=== PATIENT | female | born 1995 | race Caucasian/White ===

== ENCOUNTER 2016-11-06 10:48 | Emergency (ER) | payer SELFPAY ==
--- NOTE | 2016-11-06 11:14 | ER Document Report ---
HPI - HPI Patient complains to provider of: tampon stuck Pain Level: 4 Context: 20 yo female c/o tampon stuck in vagina x 8h. mild vaginal pain. no abdominal pain, no vomiting, no dysuria Associated Symptoms: None Exacerbated by: Deep breathing Relieved by: Denies Similar symptoms previously: No Recently seen / treated by doctor: No - ROS Systems Reviewed and Negative: Yes All other systems reviewed and negative - DERM Skin Color: Normal Past Medical History - General Information source: Patient - Social History Smoking Status: Never Smoker Frequency of alcohol use: None Drug Abuse: None Lives with: Family Family History: Reviewed & Not Pertinent Patient has suicidal ideation: No Patient has homicidal ideation: No - Medical History Medical History: Negative Renal/ Medical History: Denies: Hx Peritoneal Dialysis Vertical Provider Document - CONSTITUTIONAL Agree With Documented VS: Yes - INFECTION CONTROL TRAVEL OUTSIDE OF THE [place] IN LAST 30 DAYS: No - HEENT HEENT: Atraumatic, PERRLA - NECK Neck: Normal Inspection, Supple - RESPIRATORY Respiratory: Breath Sounds Normal, No Respiratory Distress O2 Sat by Pulse Oximetry: 99 - CARDIOVASCULAR Cardiovascular: Regular Rate, Regular Rhythm - GI/ABDOMEN Gastrointestinal: Abdomen Soft, Abdomen Non-Tender - REPRODUCTIVE Female Genitalia: Normal Inspection. negative: CMT, Adnexal Pain-Right Notes: moderate amount bright red blood in vaginal vault. no tampon visualized - BACK Back: Normal Inspection - NEURO Level of Consciousness: Awake, Alert, Appropriate - DERM Integumentary: Warm, Dry, No Rash Course - Vital Signs Vital signs: Temp Pulse Resp BP Pulse Ox 98.1 F 83 14 135/80 H 99 11/06/16 10:52 11/06/16 10:52 11/06/16 10:52 11/06/16 10:52 11/06/16 10:52 Discharge - Discharge Clinical Impression: Vaginal bleeding Condition: Stable Instructions: Vaginal Bleeding ([facility]) Additional Instructions: No tampon visualized in the vaginal vault Please make an apoointment with your MEMBERSHIP SECRETARY for further evaluation
[2016-11-06 12:41] VITALS: BP 111/78
== END 2016-11-06 12:41 | disposition home or self-care (01) ==
LOC: ER 10:48
DX: N93.8 Other specified abnormal uterine and vaginal bleeding (principal); R10.2 Pelvic and perineal pain
CPT/HCPCS: 99283

== ENCOUNTER 2017-09-24 08:59 | Emergency (ER) | payer SELFPAY ==
--- NOTE | 2017-09-24 09:21 | ER Document Report ---
ED Medical Screen (RME) - General Chief Complaint: Rib Pain Stated Complaint: RIB PAIN Time Seen by Provider: 09/24/17 09:17 Mode of Arrival: Ambulatory Information source: Patient TRAVEL OUTSIDE OF THE [place] IN LAST 30 DAYS: No - HPI Patient complains to provider of: right rib/abdo pain Notes: 09/24/17 09:19 Patient is here with complaints of right lower rib/upper abdominal pain for the last 2 days. She has had a mild URI for the last few days. States that the pain is worse when she takes a deep breath or coughs or moves in a certain way. She denies fever. She denies nausea, vomiting, diarrhea. She denies dysuria or hematuria. No significant shortness of breath. Physical exam: No distress, nontoxic appearing. Tenderness to palpation of the right upper quadrant. No CVA tenderness. Plan: CBC, CMP, lipase, urine, urine , ultrasound of the right upper quadrant, chest x-ray. An initial examination was made on the patient as part of the triage process, and it was determined a more comprehensive evaluation was necessary. Initial labs were ordered and patient was transferred to another provider in the ED who assumed care and finished evaluation and plan. - Related Data Allergies/Adverse Reactions: No Known Allergies Allergy (Verified 09/24/17 09:01) Past Medical History Renal/ Medical History: Denies: Hx Peritoneal Dialysis
--- NOTE | 2017-09-24 09:25 | ER Document Report ---
ED General - General Chief Complaint: Rib Pain Stated Complaint: RIB PAIN Time Seen by Provider: 09/24/17 09:17 Mode of Arrival: Ambulatory Notes: The patient is a 21-year-old female, no past medical history, presents with 2 days of right lower rib pain and right upper quadrant and epigastric abdominal pain. She says the pain is pleuritic in nature and worse when she takes deep breath. She smokes cigarettes and has an IUD. She says the pain is constantly worsening over these past 2 days. She denies syncope, numbness, tingling, back pain, nausea, vomiting, diarrhea, constipation, urinary symptoms or headache. TRAVEL OUTSIDE OF THE [place] IN LAST 30 DAYS: No - Related Data Allergies/Adverse Reactions: No Known Allergies Allergy (Verified 09/24/17 09:01) Past Medical History - General Information source: Patient - Social History Smoking Status: Current Every Day Smoker Frequency of alcohol use: Social Drug Abuse: None Family History: Reviewed & Not Pertinent Patient has suicidal ideation: No Patient has homicidal ideation: No Renal/ Medical History: Denies: Hx Peritoneal Dialysis Review of Systems - Review of Systems Notes: REVIEW OF SYSTEMS: CONSTITUTIONAL: -fevers, -chills EENT: -eye pain, -difficulty swallowing, -nasal congestion CARDIOVASCULAR: +chest pain, -syncope. RESPIRATORY: -cough, +SOB GASTROINTESTINAL: +RUQ abdominal pain, -nausea, -vomiting, -diarrhea GENITOURINARY: -dysuria, -hematuria MUSCULOSKELETAL: -back pain, -neck pain SKIN: -rash or skin lesions. HEMATOLOGIC: -easy bruising or bleeding. LYMPHATIC: -swollen, enlarged glands. NEUROLOGICAL: -altered mental status or loss of consciousness, -headache, - neurologic symptoms PSYCHIATRIC: -anxiety, -depression. ALL OTHER SYSTEMS REVIEWED AND NEGATIVE. Physical Exam - Vital signs Vitals: Temp Pulse Resp BP Pulse Ox 98.6 F 88 16 124/69 98 09/24/17 09:08 09/24/17 09:08 09/24/17 09:08 09/24/17 09:08 09/24/17 09:08 - Notes Notes: PHYSICAL EXAMINATION: GENERAL: Well-appearing, well-nourished and in no acute distress. HEAD: Atraumatic, normocephalic. EYES: Pupils equal round and reactive to light, extraocular movements intact, sclera anicteric, conjunctiva are normal. ENT: nares patent, oropharynx clear without exudates. Moist mucous membranes. NECK: Normal range of motion, supple without lymphadenopathy LUNGS: Breath sounds clear to auscultation bilaterally and equal. No wheezes rales or rhonchi. HEART: Regular rate and rhythm without murmurs ABDOMEN: Soft, mild RUQ and epigastric tenderness, normoactive bowel sounds. No guarding, no rebound. No masses appreciated. EXTREMITIES: Normal range of motion, no pitting or edema. No cyanosis. NEUROLOGICAL: Cranial nerves grossly intact. Normal speech, normal gait. Normal sensory and motor exams. PSYCH: Normal mood, normal affect. SKIN: Warm, Dry, normal turgor, no rashes or lesions noted. Course - Re-evaluation Re-evalutation: Patient with right-sided pleuritic chest pain and right upper quadrant abdominal pain for the past 2 days that is worsening. Patient is low risk for PE, but unable to PERC out due to her smoking and control use. Will send d-dimer. D-dimer is positive, but CTA does not show any acute abnormalities. Right upper quadrant ultrasound shows a mildly enlarged gallbladder wall, which is most likely normal. Her LFTs and bilirubin are normal and exam is now normal, so cholecystitis is very unlikely at this time. Patient appears well and instructed her to to follow-up with her primary care physician for further evaluation and treatment. - Vital Signs Vital signs: Temp Pulse Resp BP Pulse Ox 97.8 F 67 18 114/81 98 09/24/17 11:37 09/24/17 11:37 09/24/17 11:37 09/24/17 11:37 09/24/17 11:37 - Laboratory Result Diagrams: 09/24/17 09:33 09/24/17 09:33 Laboratory results interpreted by me: 09/24/17 09/24/17 09/24/17 09:33 09:33 09:33 Monocytes % 13.4 H D-Dimer 0.75 H Sodium 147.4 H Calcium 10.3 H Urine Blood 09/24/17 09:44 Monocytes % D-Dimer Sodium Calcium Urine Blood MODERATE H - Diagnostic Test Radiology reviewed: Image reviewed, Reports reviewed Radiology results interpreted by me: CXR: NAD RUQ US: Wall thickness upper limits of normal, probably a normal variant. No evidence of gallstones. CTA Chest: NAD, No PE - EKG Interpretation by Me EKG shows normal: Sinus rhythm, [place], Intervals, QRS Complexes, ST-T Waves Rate: Normal Discharge - Discharge Clinical Impression: Epigastric abdominal pain Chest pain Qualifiers: Chest pain type: unspecified Qualified Code(s): R07.9 - Chest pain, unspecified Condition: Stable Disposition: HOME, SELF-CARE Additional Instructions: CHEST PAIN OF UNCLEAR CAUSE: The exact cause of your chest pain isn't clear. Fortunately, there is no evidence of a dangerous medical condition. Further testing may be required to find the source of the pain. Most often, we find that this pain is coming from the chest wall -- the muscles or rib joints in the chest. But chest pain can come from the lung and lung lining, the esophagus, the heart valves or heart lining, and even the stomach or gallbladder. Rest. Eat lightly until the pain is gone. We may prescribe medicine for pain and inflammation. You should call the physician immediately if the pain radiates to the shoulder, jaw or arms; if you start to run a fever or develop a cough; or if you develop shortness of breath, or other new or alarming symptoms. NORMAL EXAM AND WORKUP: At this time, your examination and workup show no significant abnormality. No significant abnormal physical findings were noted. All laboratory, EKG, and imaging (x-ray, CT scans, ultrasound) studies that were ordered show no significant abnormality. Although your examination and all studies that were ordered showed no significant abnormal finding, there are no examinations and no studies that are 100% accurate. There is always the possibility that some abnormality could exist and not be detected with physical examination or within the limits and capabilities of laboratory and other studies. You should return or follow up as you were instructed on your visit today for further evaluation if your symptoms do not resolve. CHEST WALL PAIN: Your chest pain may be coming from the chest wall. This is often caused by straining the muscles or joints in the chest during physical activity, direct trauma, coughing, or vigorous vomiting. Persons with arthritis are especially prone to this type of pain, due to inflammation of the cartilage joints near the breast bone. Occasionally, no cause can be found. Rest from strenuous physical activity. This kind of chest pain is usually made worse by movement of the chest. Depending on the symptoms, we may prescribe medicine for pain, muscle relaxation, and antiinflammatory effects. If the pain is new, and seems to be due to muscle strain, cold packs can help. Otherwise, apply gentle warmth to the painful area for 15 minutes every hour or two. You should call contact the doctor immediately if things change. Further evaluation is needed if you develop a fever or cough, if the nature of the pain changes, or if you become short of breath. ACID REFLUX DISEASE (GERD): Gastro-Esophageal Reflux Disease (GERD) is caused by stomach acid refluxing back up into the esophagus. The valve at the end of the esophagus may be weak. This is common in persons with a hiatal hernia. GERD symptoms can include indigestion, chest pain, heartburn, or food "sticking." Certain foods, alcohol, and aspirin can make GERD worse. Treatment depends on the severity. Usually, antacids or acid-suppressing medicines are used. When the esophagus is acutely inflamed, the physician will often prescribe membrane-protective drugs such as Carafate. Some patients benefit from medication such as Reglan that tightens the valve at the top of the stomach. Avoid those foods that bring on your symptoms. For many people, these foods are coffee, chocolate, onions, garlic, and carbonated drinks. Don't use alcohol, aspirin, caffeine, or tobacco. Don't eat late at night -- within 4 hours of bedtime. Don't over-eat. If necessary, elevate the head of your bed about 4 inches so that stomach acid will not roll up into your esophagus. Call the doctor if you develop severe chest pain, inability to swallow fluids, fever, or worsening symptoms. FOLLOW-UP CARE: If you have been referred to a physician for follow-up care, call the physician s office for an appointment as you were instructed or within the next two days. If you experience worsening or a significant change in your symptoms, notify the physician immediately or return to the Emergency Department at any time for re-evaluation. SHORTNESS OF BREATH OR DYSPNEA: You were evaluated for shortness of breath, or dyspnea. Dyspnea has many causes, and some are more serious than others. Sometimes it's impossible to diagnose the cause of dyspnea with the tests that are available on an emergency basis. Based on our evaluation today, you do not need hospitalization now. We found no evidence of pneumonia, collapsed lung, blood clots in the lung, tumors , or heart failure. Causes of non-specific dyspnea can include asthma or bronchospasm, hyperventilation, emotional distress, heart disease, emphysema, fibrosis of the lung, and stiffness of the chest wall. In healthy individuals with a single episode, it's sometimes reasonable to do nothing but wait to see if the problem occurs again. Additional tests used to evaluate dyspnea can include cardiac stress testing, echocardiography, pulmonary function testing, CAT scan of the chest, bronchoscopy or pulmonary biopsy. Return if shortness of breath persists or worsens, or if you develop chest pain, fever, cough, confusion, or fainting. NORMAL EXAM AND WORKUP: At this time, your examination and workup show no significant abnormality. No significant abnormal physical findings were noted. All laboratory, EKG, and imaging (x-ray, CT scans, ultrasound) studies that were ordered show no significant abnormality. Although your examination and all studies that were ordered showed no significant abnormal finding, there are no examinations and no studies that are 100% accurate. There is always the possibility that some abnormality could exist and not be detected with physical examination or within the limits and capabilities of laboratory and other studies. You should return or follow up as you were instructed on your visit today for further evaluation if your symptoms do not resolve. FOLLOW-UP CARE: If you have been referred to a physician for follow-up care, call the physician s office for an appointment as you were instructed or within the next two days. If you experience worsening or a significant change in your symptoms, notify the physician immediately or return to the Emergency Department at any time for re-evaluation. Referrals: BLOSSOM CONTE MD [ACTIVE STAFF] - Follow up as needed
--- NOTE | 2017-09-24 09:39 | RADIOLOGY REPORT (SQ) ---
EXAM DESCRIPTION: CHEST 2 VIEWS COMPLETED DATE/TIME: 09/24/2017 9:27 am REASON FOR STUDY: pain COMPARISON: None. EXAM PARAMETERS: NUMBER OF VIEWS: two views TECHNIQUE: Digital Frontal and Lateral radiographic views of the chest acquired. RADIATION DOSE: NA LIMITATIONS: none FINDINGS: LUNGS AND PLEURA: No opacities, masses or pneumothorax. No pleural effusion. MEDIASTINUM AND HILAR STRUCTURES: No masses or contour abnormalities. HEART AND VASCULAR STRUCTURES: Heart normal size. No evidence for failure. BONES: No acute findings. HARDWARE: None in the chest. OTHER: No other significant finding. IMPRESSION: NO ACUTE RADIOGRAPHIC FINDING IN THE CHEST. TECHNICAL DOCUMENTATION: JOB ID: [id number] [employer]- All Rights Reserved Reading location - IP/workstation name: [email or web address]
[2017-09-24 09:48] LABS: ABSOLUTE BASOPHILS # (AUTO) 0.1 10^3/uL (0.0-0.2); ABSOLUTE EOSINOPHILS # (AUTO) 0.2 10^3/uL (0.0-0.6); ABSOLUTE LYMPHOCYTES (AUTO) 2.2 10^3/uL (0.5-4.7); ABSOLUTE MONOCYTES (AUTO) 1.3 10^3/uL (0.1-1.4); ABSOLUTE NEUT (AUTO) 6.1 10^3/uL (1.7-8.2); BASOPHILS % (AUTO) 0.9 % (0-2); EOSINOPHILS % (AUTO) 2.4 % (0-6); HEMATOCRIT 41.1 % (36.0-47.0); LYMPHOCYTES % (AUTO) 22.1 % (13-45); MEAN CORPUSCULAR HEMOGLOBIN 28.2 pg (27.0-33.4); MEAN CORPUSCULAR VOLUME 83 fl (80-97); MONOCYTES % (AUTO) 13.4 % (3-13); PLATELET COUNT 334 10^3/uL (150-450); RED BLOOD COUNT 4.96 10^6/uL (3.72-5.28); RED CELL DISTRIBUTION WIDTH 13.5 % (11.5-14.0); SEGMENTED NEUTROPHILS % (AUTO) 61.2 % (42-78); TOTAL CELLS COUNTED % (AUTO) 100 %
[2017-09-24 10:00] LABS: ALANINE AMINOTRANSFERASE 28 U/L (9-52); ALBUMIN 4.5 g/dL (3.5-5.0); ALKALINE PHOSPHATASE 77 U/L (38-126); ANION GAP 12 (5-19); ASPARTATE AMINO TRANSFERASE 24 U/L (14-36); BILIRUBIN,DIRECT 0.2 mg/dL (0.0-0.4); BILIRUBIN,TOTAL 0.2 mg/dL (0.2-1.3); BLOOD UREA NITROGEN 13 mg/dL (7-20); CALCIUM 10.3 mg/dL (8.4-10.2); CARBON DIOXIDE 29 mmol/L (22-30); CHLORIDE 106 mmol/L (98-107); GLUCOSE 82 mg/dL (75-110); POTASSIUM 4.7 mmol/L (3.6-5.0); SODIUM 147.4 mmol/L (137-145); TOTAL PROTEIN 7.4 g/dL (6.3-8.2)
[2017-09-24 10:02] LABS: APPEARANCE,URINE CLEAR; BILIRUBIN,URINE NEGATIVE (NEGATIVE); COLOR,URINE YELLOW; GLUCOSE, URINE NEGATIVE (NEGATIVE); KETONES,URINE NEGATIVE (NEGATIVE); LEUKOCYTE ESTERASE,URINE NEGATIVE (NEGATIVE); NITRITE,URINE NEGATIVE (NEGATIVE); PROTEIN,URINE NEGATIVE (NEGATIVE); URINE SPECIFIC GRAVITY 1.015; UROBILINOGEN,URINE NEGATIVE mg/dL (<2.0)
--- NOTE | 2017-09-24 10:42 | RADIOLOGY REPORT (SQ) ---
EXAM DESCRIPTION: U/S ABDOMEN LIMITED W/O DOP COMPLETED DATE/TIME: 09/24/2017 10:22 am REASON FOR STUDY: ruq pain COMPARISON: None. TECHNIQUE: Dynamic and static grayscale images acquired of the abdomen and recorded on PACS. Additio nal selected color Doppler and spectral images recorded. LIMITATIONS: None. FINDINGS: PANCREAS: No masses. Visualized pancreatic duct normal caliber. LIVER: No masses. Echotexture normal. LIVER VASCULATURE: Normal directional flow of the main portal vein and hepatic veins. GALLBLADDER: No stones. Wall thickness 3.5 mm. No pericholecystic fluid. ULTRASOUND-DETECTED ESTES'S SIGN: Negative. INTRAHEPATIC DUCTS AND COMMON DUCT: CBD and intrahepatic ducts normal caliber. No filling defects. INFERIOR VENA CAVA: Normal flow. AORTA: No aneurysm. RIGHT KIDNEY: Normal size. Normal echogenicity. No solid or suspicious masses. No hydronephrosis. No calcifications. PERITONEAL AND RIGHT PLEURAL SPACE: No ascites or effusions. OTHER: No other significant findings. IMPRESSION: Wall thickness upper limits of normal, probably a normal variant. No evidence of gallst ones. TECHNICAL DOCUMENTATION: JOB ID: [id number] [employer]- All Rights Reserved Reading location - IP/workstation name: [email or web address]
--- NOTE | 2017-09-24 11:20 | RADIOLOGY REPORT (SQ) ---
EXAM DESCRIPTION: CTA CHEST COMPLETED DATE/TIME: 09/24/2017 10:53 am REASON FOR STUDY: pleuritic chest pain, +d-dimer, smoking, con COMPARISON: Chest x-ray dated 09/24/2017 TECHNIQUE: CT scan of the chest performed using helical scanning technique with dynamic intravenous contrast injection. Images reviewed with lung, soft tissue and bone windows. Reconstructed coronal and sagittal MPR images reviewed. Additional 3 dimensional post-processing performed to develop Maximal Intensity Projection images (SC P). All images stored on PACS. All CT scanners at this facility use dose modulation, iterative reconstruction, and/or weight based d osing when appropriate to reduce radiation dose to as low as reasonably achievable (ALARA). [facility]: Dose Right [facility]: CareDose [facility]: Dose Right [facility]: Teradose 4D [facility]: Innofidei CONTRAST TYPE AND DOSE: contrast/concentration: Isovue 370.00 mg/ml; Total Contrast Delivered: 73.0 ml; Total Saline Delivered: 90.1 ml Contrast bolus optimized for the pulmonary arteries. Not diagnostic for the aorta. RENAL FUNCTION: None required. The patient is less than 50 years old. RADIATION DOSE: CT Rad equipment meets quality standard of care and radiation dose reduction techniq ues were employed. CTDIvol: 13.2 - 15.6 mGy. DLP: 561 mGy-cm. . LIMITATIONS: None. FINDINGS: LUNGS AND PLEURA: No masses, infiltrates, pneumothorax. No pleural effusions, calcificati ons. AORTA AND GREAT VESSELS: No aneurysm. Contrast bolus not optimized for the aorta. HEART: No pericardial effusion. No significant coronary artery calcifications. PULMONARY ARTERIES: No emboli visualized in the main pulmonary arteries or the segmental branches. HILAR AND MEDIASTINAL STRUCTURES: No identified masses or abnormal nodes. HARDWARE: None in the chest. UPPER ABDOMEN: No significant findings. Limited exam. THYROID AND OTHER SOFT TISSUES: No masses. No adenopathy. BONES: No acute or significant finding. 3D MIPS: Confirm above findings. OTHER: No other significant finding. IMPRESSION: NORMAL CTA OF THE CHEST. NO PULMONARY EMBOLI. COMMENT: Quality ID # [id number]: Final reports with documentation of one or more dose reduction techniques (e.g., Automated exposure control, adjustment of the mA and/or kV according to patient size, use of iterative reconstruction technique) TECHNICAL DOCUMENTATION: JOB ID: [id number]- All Rights Reserved Reading location - IP/workstation name: [email or web address]
[2017-09-24 11:39] VITALS: BP 114/81
--- NOTE | 2017-09-24 13:59 | EKG REPORT ---
SEVERITY:- NORMAL ECG - SINUS RHYTHM : Confirmed by: Christian Colón MD 24-Sep-2017 13:58:30
== END 2017-09-24 11:39 | disposition home or self-care (01) ==
LOC: ER 08:59
DX: R07.81 Pleurodynia (principal); K82.8 Other specified diseases of gallbladder; R10.11 Right upper quadrant pain; R10.13 Epigastric pain; F17.210 Nicotine dependence, cigarettes, uncomplicated; Z97.5 Presence of (intrauterine) contraceptive device
CPT/HCPCS: 36415; 71046; 71275; 76705; 80053; 81001; 81025; 83690; 84484; 85025; 85379; 93005; 93010; 99284

== ENCOUNTER 2018-02-23 09:11 | Emergency (ER) | payer SELFPAY ==
[2018-02-23] MEDS ORDERED: IBUPROFEN 800 MG TABLET PO ONE (09:34)
[2018-02-23] MEDS ORDERED: IPRATROPIUM/ALBUTEROL 0.5-2.5 MG/3 ML AMPUL NEB ONE (09:34)
[2018-02-23] MEDS ORDERED: PSEUDOEPHEDRINE HCL 30 MG TABLET PO ONE (09:34)
--- NOTE | 2018-02-23 09:39 | ER Document Report ---
HPI - HPI Patient complains to provider of: Cough Onset: Other - 2 days Onset/Duration: Persistent Quality of pain: Achy Pain Level: 2 Context: Patient presents complaining of cough congestion sore throat for the past 2 days. Patient states that she did notice a small amount of blood in the sputum but attributes this to soreness of the throat. Patient denies any fever. Associated Symptoms: Productive cough, Rhinnorhea, Sore throat. denies: Chest pain, Earache, Fever, Nausea Exacerbated by: Denies Relieved by: Denies Similar symptoms previously: No Recently seen / treated by doctor: No - ROS ROS below otherwise negative: Yes Systems Reviewed and Negative: Yes All other systems reviewed and negative - CONSTITUTIONAL Constitutional: DENIES: Fever - EENT EENT: REPORTS: Sore Throat, Nasal Drainage-Clear, Congestion - CARDIOVASCULAR Cardiovascular: DENIES: Chest pain - RESPIRATORY Respiratory: REPORTS: Coughing - GASTROINTESTINAL Gastrointestinal: DENIES: Patient vomiting, Diarrhea - MUSCULOSKELETAL Musculoskeletal: DENIES: Back Pain - DERM Skin Color: Normal Skin Problems: None Past Medical History - General Information source: Patient - Social History Smoking Status: Current Every Day Smoker Smoking Education Provided: Yes Frequency of alcohol use: None Drug Abuse: None Occupation: [employer] Lives with: Family Family History: Reviewed & Not Pertinent - Medical History Medical History: Negative Renal/ Medical History: Denies: Hx Peritoneal Dialysis Surgical Hx: Negative Vertical Provider Document - CONSTITUTIONAL Agree With Documented VS: Yes Exam Limitations: No Limitations General Appearance: WD/WN, No Apparent Distress - INFECTION CONTROL TRAVEL OUTSIDE OF THE [place] IN LAST 30 DAYS: No - HEENT HEENT: Atraumatic, Normocephalic, Pharyngeal Tenderness, Pharyngeal Erythema. negative: Pharyngeal Exudate, Tympanic Membrane Red, Tympanic Membrane Bulging - NECK Neck: Normal Inspection, Supple. negative: Lymphadenopathy-Left, Lymphadenopathy-Right - RESPIRATORY Respiratory: No Respiratory Distress, Chest Non-Tender, Wheezing - Only noted with coughing - CARDIOVASCULAR Cardiovascular: Regular Rate, Regular Rhythm, No Murmur - GI/ABDOMEN Gastrointestinal: Abdomen Soft, Abdomen Non-Tender, No Organomegaly, Normal Bowel Sounds - BACK Back: Normal Inspection - MUSCULOSKELETAL/EXTREMETIES Musculoskeletal/Extremeties: MAEW, FROM - NEURO Level of Consciousness: Awake, Alert, Appropriate Motor/Sensory: No Motor Deficit - DERM Integumentary: Warm, Dry, No Rash Course - Laboratory Laboratory results interpreted by me: 02/23/18 10:46 Labs- Entire Visit 02/23/18 09:35 Group A Strep Rapid NEGATIVE - Diagnostic Test Radiology reviewed: Reports reviewed Discharge - Discharge Clinical Impression: Sore throat Upper respiratory infection Qualifiers: URI type: unspecified URI Qualified Code(s): J06.9 - Acute upper respiratory infection, unspecified Condition: Stable Disposition: HOME, SELF-CARE Instructions: Acetaminophen, Upper Respiratory Illness ([facility]) Additional Instructions: Return immediately for any new or worsening symptoms Followup with your primary care provider, call tomorrow to make a followup appointment Prescriptions: Albuterol Sulfate [Ventolin Hfa] 2 puff IH Q4HP PRN #17 gm PRN Reason: Guaifenesin/Pseudoephedrne HCl [Mucinex D ER Tablet] 1 each PO Q12 PRN #12 tab.er.12h PRN Reason: Naproxen [Naprosyn 250 Nmg Tablet] 1 tab PO BID #14 tablet Forms: Smoking Cessation Education, Return to Work Referrals: [facility] [Provider Group] - Follow up as needed
--- NOTE | 2018-02-23 10:33 | RADIOLOGY REPORT (SQ) ---
EXAM DESCRIPTION: CHEST 2 VIEWS COMPLETED DATE/TIME: 02/23/2018 10:19 am REASON FOR STUDY: cough COMPARISON: None. TECHNIQUE: Frontal and lateral radiographic views of the chest acquired. NUMBER OF VIEWS: Two view. LIMITATIONS: None. FINDINGS: LUNGS AND PLEURA: No opacities, masses or pneumothorax. No pleural effusion. MEDIASTINUM AND HILAR STRUCTURES: No masses or contour abnormalities. HEART AND VASCULAR STRUCTURES: Heart normal size. No evidence for failure. BONES: No acute findings. HARDWARE: None in the chest. OTHER: No other significant finding. IMPRESSION: NO SIGNIFICANT RADIOGRAPHIC FINDING IN THE CHEST. TECHNICAL DOCUMENTATION: JOB ID: [id number] [employer]- All Rights Reserved Reading location - IP/workstation name: [email or web address]
[2018-02-23 11:15] VITALS: BP 130/82
== END 2018-02-23 11:19 | disposition home or self-care (01) ==
LOC: ER 09:11
DX: J06.9 Acute upper respiratory infection, unspecified (principal); J02.9 Acute pharyngitis, unspecified; F17.200 Nicotine dependence, unspecified, uncomplicated
CPT/HCPCS: 94640; 99283; 87070; 87880; 71046; J7620

== ENCOUNTER 2018-09-10 21:31 | Emergency (ER) | payer SELFPAY ==
[2018-09-10 21:56] VITALS: BP 105/67
== END 2018-09-10 22:26 | disposition left against medical advice (07) ==
LOC: ER 21:31
DX: Z53.21 Procedure and treatment not carried out due to patient leaving prior to being seen by health care provider (principal)

== ENCOUNTER 2019-03-04 10:40 | Outpatient (CLI) | payer MEDICAID ==
[2019-03-04 11:27] LABS: APPEARANCE,URINE SLIGHTLY-CLOUDY; BILIRUBIN,URINE NEGATIVE (NEGATIVE); COLOR,URINE YELLOW; GLUCOSE, URINE NEGATIVE (NEGATIVE); KETONES,URINE NEGATIVE (NEGATIVE); LEUKOCYTE ESTERASE,URINE NEGATIVE (NEGATIVE); NITRITE,URINE NEGATIVE (NEGATIVE); PROTEIN,URINE NEGATIVE (NEGATIVE); URINE SPECIFIC GRAVITY 1.017
[2019-03-04 11:40] LABS: URINE AMPHETAMINES SCREEN NEGATIVE; URINE BARBITURATES SCREEN NEGATIVE; URINE BENZODIAZEPINES SCREEN NEGATIVE; URINE COCAINE SCREEN NEGATIVE; URINE MARIJUANA (THC) SCREEN NEGATIVE; URINE METHADONE SCREEN NEGATIVE; URINE PHENCYCLIDINE SCREEN NEGATIVE
== END 2019-03-04 12:45 | disposition home or self-care (01) ==
LOC: LC 10:40
PROVIDERS: ATTEND Obstetrics & Gynecology Gynecology
PROC: 4A1HXCZ Monitoring of Products of Conception, Cardiac Rate, External Approach (ICD-10-PCS; principal; 2019-03-04)
DX: O47.03 False labor before 37 completed weeks of gestation, third trimester (principal); Z3A.33 33 weeks gestation of pregnancy
CPT/HCPCS: 59025; 80307; 81001

== ENCOUNTER 2019-03-12 16:43 | Outpatient (CLI) | payer MEDICAID ==
[2019-03-12 18:06] LABS: APPEARANCE,URINE SLIGHTLY-CLOUDY; BILIRUBIN,URINE NEGATIVE (NEGATIVE); COLOR,URINE YELLOW; GLUCOSE, URINE >=500 mg/dL (NEGATIVE); KETONES,URINE TRACE mg/dL (NEGATIVE); LEUKOCYTE ESTERASE,URINE LARGE (NEGATIVE); NITRITE,URINE NEGATIVE (NEGATIVE); PROTEIN,URINE NEGATIVE (NEGATIVE); URINE SPECIFIC GRAVITY 1.021
[2019-03-12 18:14] LABS: URINE AMPHETAMINES SCREEN NEGATIVE; URINE BARBITURATES SCREEN NEGATIVE; URINE BENZODIAZEPINES SCREEN NEGATIVE; URINE COCAINE SCREEN NEGATIVE; URINE MARIJUANA (THC) SCREEN NEGATIVE; URINE METHADONE SCREEN NEGATIVE; URINE PHENCYCLIDINE SCREEN NEGATIVE
--- NOTE | 2019-03-12 18:38 | Non Stress Test Report ---
Non Stress Test Datetime Report Generated by CPN: 03/12/2019 18:38 DEMOGRAPHIC Test Number: 2 Test Number: 1 EGA NST: 34.1 EGA NST: 33.0 INDICATION Indication for Study: Decreased Movement; Ordered by Provider Indication for Study: Ordered by Provider VITAL SIGNS Temperature - NST: 98.3 Pulse - NST: 104 RESP - NST: 16 NBPSYS NST: 113 NBPDIA NST: 55 MONITORING Monitor Explained: Monitor Explained; Test Explained; Patient Verbalized Understanding Monitor Explained: Monitor Explained; Test Explained; Patient Verbalized Understanding Time on Monitor: 03/12/2019 17:00 Time on Monitor: 03/04/2019 12:05 Time off Monitor: 03/12/2019 18:09 Time off Monitor: 03/04/2019 12:36 NST Duration: 69 NST Duration: 31 NST INTERVENTIONS NST Interventions: PO Hydration; Reposition Patient NST Interventions: PO Hydration Physician Notified NST: Dr Younger Physician Notified NST: JCox,CNM BABY A: [id number] BABY A Movement : Present; Decreased Movement : Present Contraction Frequency : NONE Contraction Frequency : none FHR Baseline : 140 FHR Baseline : 135 Accelerations : 15X15 Accelerations : 15X15 Decelerations : None Decelerations : None Variability : Moderate 6-25bpm Variability : Moderate 6-25bpm NST Review: Meets Criteria for Reactive NST NST Review: Meets Criteria for Reactive NST NST Review and Verified By : MANDO LEUNG RN NST Review and Verified By : JAYLYN Douglas NST Results: Reactive NST Results: Reactive NST REPORT Report Trigger: Send Report
== END 2019-03-12 18:46 | disposition home or self-care (01) ==
LOC: LC 16:43
PROVIDERS: ATTEND Obstetrics & Gynecology
PROC: 4A1HXCZ Monitoring of Products of Conception, Cardiac Rate, External Approach (ICD-10-PCS; principal; 2019-03-12)
DX: O36.8130 Decreased fetal movements, third trimester, not applicable or unspecified (principal); Z3A.34 34 weeks gestation of pregnancy
CPT/HCPCS: 59025; 80307; 81001

== ENCOUNTER 2019-03-14 01:10 | Emergency (ER) | payer MEDICAID ==
[2019-03-14 01:30] VITALS: BP 124/89
[2019-03-14] MEDS ORDERED: AMOXICILLIN TRIHYDRATE 500 MG CAPSULE PO ONE (02:27)
--- NOTE | 2019-03-14 02:27 | ER Document Report ---
ED General - General Chief Complaint: Toothache Stated Complaint: TOOTHACHE Time Seen by Provider: 03/14/19 02:03 Primary Care Provider: CADEN RIVERA MD [Primary Care Provider] - Follow up as needed TRAVEL OUTSIDE OF THE [place] IN LAST 30 DAYS: No - HPI Notes: 23-year-old female third trimester presents with toothache and pain. Patient is a history of prior dental abscess in her right maxillary first molar. Been on antibiotics before but now has returned. Sternal wait till after to have it removed. No fever, chills or sweats. Throbbing pain, hot and cold sensitive. Nonradiating. Moderate intensity, gradual onset. No other modifying factors, no other associated symptoms, no other provocative or palliative factors. - Related Data Allergies/Adverse Reactions: No Known Allergies Allergy (Verified 03/04/19 10:51) Home Medications: flinstone gummies Past Medical History - Social History Smoking Status: Never Smoker Chew tobacco use (# tins/day): No Frequency of alcohol use: None Drug Abuse: None Family History: Reviewed & Not Pertinent Patient has suicidal ideation: No Patient has homicidal ideation: No - Medical History Notes: Currently Renal/ Medical History: Denies: Hx Peritoneal Dialysis Review of Systems - Review of Systems Notes: Review of systems as in the history of present illness, otherwise negative x 10 systems. Physical Exam - Vital signs Vitals: Temp Pulse Resp BP Pulse Ox 97.9 F 113 H 20 124/89 H 99 03/14/19 01:26 03/14/19 01:26 03/14/19 01:26 03/14/19 01:26 03/14/19 01:26 - Notes Notes: General: Well devloped, no acute distress. HEENT: Normocephalic, atraumatic. Pupils equal round reactive to light. Mucosa moist. No JVD. Chest: No trauma, normal excursion. Respiratory: Good air exchange, normal excursion. Cardiac: Regular rhythm Abdomen: Soft, benign. Nondistended. Back: No asymmetry or gross abnormality. Motor: Grossly normal power and tone. Neurologic: Alert, nonfocal. Vascular: Well perfused Skin: No petechiae or purpura Oropharynx shows some gingival fullness and erythema but no significant fluctuance about the right buccal first molar Course - Re-evaluation Re-evalutation: 03/14/19 02:26 Female dental infection, no obvious drainable abscess. There is broken tooth is carious noted in this area. She is referred back to her dentist, will take Tylenol, given amoxicillin a prescription for the same. - Vital Signs Vital signs: Temp Pulse Resp BP Pulse Ox 97.9 F 113 H 20 124/89 H 99 03/14/19 01:26 03/14/19 01:26 03/14/19 01:26 03/14/19 01:26 03/14/19 01:26 Discharge - Discharge Clinical Impression: Dental abscess Condition: Stable Disposition: HOME, SELF-CARE Additional Instructions: Follow-up with your dentist early this week Prescriptions: Amoxicillin 1 tab PO TID #30 tab Referrals: CADEN RIVERA MD [Primary Care Provider] - Follow up as needed
== END 2019-03-14 02:55 | disposition home or self-care (01) ==
LOC: ER 01:10
DX: O26.93 Pregnancy related conditions, unspecified, third trimester (principal); K04.7 Periapical abscess without sinus; Z3A.00 Weeks of gestation of pregnancy not specified
CPT/HCPCS: 99282

== ENCOUNTER 2019-03-16 14:17 | Outpatient (CLI) | payer MEDICAID ==
--- NOTE | 2019-03-16 15:20 | Non Stress Test Report ---
Non Stress Test Datetime Report Generated by CPN: 03/16/2019 15:20 DEMOGRAPHIC EGA NST: 34.5 INDICATION Indication for Study: Diabetes Mellitus MONITORING Monitor Explained: Monitor Explained; Test Explained; Patient Verbalized Understanding Time on Monitor: 03/16/2019 14:38 Time off Monitor: 03/16/2019 15:10 NST Duration: 32 NST INTERVENTIONS NST Interventions: PO Hydration Physician Notified NST: K Schwab CNM BABY A: [id number] BABY A Movement : Present Contraction Frequency : denies FHR Baseline : 140 Accelerations : 15X15 Variability : Moderate 6-25bpm NST Review: Meets Criteria for Reactive NST NST Review and Verified By : Rachell Camp RNC NST Results: Reactive NST REPORT Report Trigger: Send Report
== END 2019-03-16 15:14 | disposition home or self-care (01) ==
LOC: LC 14:17
PROVIDERS: ATTEND Student in an Organized Health Care Education/Training Program
PROC: 4A1HXCZ Monitoring of Products of Conception, Cardiac Rate, External Approach (ICD-10-PCS; principal; 2019-03-16)
DX: O24.410 Gestational diabetes mellitus in pregnancy, diet controlled (principal); Z3A.35 35 weeks gestation of pregnancy
CPT/HCPCS: 59025

== ENCOUNTER 2019-03-28 00:46 | Outpatient (CLI) | payer MEDICAID ==
[2019-03-28 02:29] LABS: APPEARANCE,URINE SLIGHTLY-CLOUDY; BILIRUBIN,URINE NEGATIVE (NEGATIVE); COLOR,URINE STRAW; GLUCOSE, URINE NEGATIVE (NEGATIVE); KETONES,URINE NEGATIVE (NEGATIVE); LEUKOCYTE ESTERASE,URINE SMALL (NEGATIVE); NITRITE,URINE NEGATIVE (NEGATIVE); PROTEIN,URINE NEGATIVE (NEGATIVE); URINE SPECIFIC GRAVITY 1.005; UROBILINOGEN,URINE NEGATIVE mg/dL (<2.0)
[2019-03-28 03:03] LABS: URINE AMPHETAMINES SCREEN NEGATIVE; URINE BARBITURATES SCREEN NEGATIVE; URINE BENZODIAZEPINES SCREEN NEGATIVE; URINE COCAINE SCREEN NEGATIVE; URINE MARIJUANA (THC) SCREEN NEGATIVE; URINE METHADONE SCREEN NEGATIVE; URINE PHENCYCLIDINE SCREEN NEGATIVE
[2019-03-28] MEDS ORDERED: HYDROXYZINE PAMOATE 50 MG CAPSULE PO ONE (03:04)
[2019-03-28] MEDS ORDERED: HYDROXYZINE PAMOATE 50 MG CAPSULE ONE (03:24)
== END 2019-03-28 03:57 | disposition home or self-care (01) ==
LOC: LC 00:46
PROVIDERS: ATTEND Obstetrics & Gynecology
PROC: 4A1HXCZ Monitoring of Products of Conception, Cardiac Rate, External Approach (ICD-10-PCS; principal; 2019-03-28)
DX: O47.03 False labor before 37 completed weeks of gestation, third trimester (principal); Z3A.36 36 weeks gestation of pregnancy
CPT/HCPCS: 59025; 81001; 80307; J3490

== ENCOUNTER 2019-03-31 09:15 | Outpatient (CLI) | payer MEDICAID ==
--- NOTE | 2019-03-31 09:26 | Non Stress Test Report ---
Non Stress Test Datetime Report Generated by CPN: 03/31/2019 09:26 DEMOGRAPHIC EGA NST: 36.3 INDICATION Indication for Study: Ordered by Provider URINE RESULTS Urine Protein, NST: Negative Urine Ketones - NST: Negative Urine Glucose - NST: Negative Urine Blood - NST: Negative MONITORING Monitor Explained: Monitor Explained; Test Explained; Patient Verbalized Understanding Time on Monitor: 03/28/2019 01:08 Time off Monitor: 03/28/2019 03:32 NST Duration: 144 NST INTERVENTIONS NST Interventions: PO Hydration Physician Notified NST: Dr. Robels BABY A: [id number] BABY A Movement : Present Contraction Frequency : 2-7 FHR Baseline : 125 Accelerations : 15X15 Decelerations : None Variability : Moderate 6-25bpm NST Review: Meets Criteria for Reactive NST NST Review and Verified By : Ayaz Crabtree RN NST Results: Reactive NST REPORT Report Trigger: Send Report
[2019-03-31 09:48] LABS: APPEARANCE,URINE CLOUDY; BILIRUBIN,URINE NEGATIVE (NEGATIVE); COLOR,URINE YELLOW; GLUCOSE, URINE NEGATIVE (NEGATIVE); KETONES,URINE NEGATIVE (NEGATIVE); LEUKOCYTE ESTERASE,URINE LARGE (NEGATIVE); NITRITE,URINE NEGATIVE (NEGATIVE); PROTEIN,URINE NEGATIVE (NEGATIVE); URINE SPECIFIC GRAVITY 1.015; UROBILINOGEN,URINE NEGATIVE mg/dL (<2.0)
[2019-03-31 10:06] LABS: URINE AMPHETAMINES SCREEN NEGATIVE; URINE BARBITURATES SCREEN NEGATIVE; URINE BENZODIAZEPINES SCREEN NEGATIVE; URINE COCAINE SCREEN NEGATIVE; URINE MARIJUANA (THC) SCREEN NEGATIVE; URINE METHADONE SCREEN NEGATIVE; URINE PHENCYCLIDINE SCREEN NEGATIVE
== END 2019-03-31 10:40 | disposition home or self-care (01) ==
LOC: LC 09:15
PROVIDERS: ATTEND Obstetrics & Gynecology
PROC: 4A1HXCZ Monitoring of Products of Conception, Cardiac Rate, External Approach (ICD-10-PCS; principal; 2019-03-31)
DX: O47.03 False labor before 37 completed weeks of gestation, third trimester (principal); Z3A.36 36 weeks gestation of pregnancy
CPT/HCPCS: 59025; 80307; 81001

== ENCOUNTER 2019-04-01 20:28 | Outpatient (CLI) | payer MEDICAID ==
[2019-04-01 21:29] LABS: APPEARANCE,URINE SLIGHTLY-CLOUDY; BILIRUBIN,URINE NEGATIVE (NEGATIVE); CALCIUM OXALATE CRYSTALS,URINE MODERATE /HPF; COLOR,URINE YELLOW; GLUCOSE, URINE NEGATIVE (NEGATIVE); KETONES,URINE TRACE mg/dL (NEGATIVE); LEUKOCYTE ESTERASE,URINE TRACE (NEGATIVE); NITRITE,URINE NEGATIVE (NEGATIVE); PROTEIN,URINE NEGATIVE (NEGATIVE); URINE SPECIFIC GRAVITY 1.024
[2019-04-01 21:50] LABS: URINE AMPHETAMINES SCREEN NEGATIVE; URINE BARBITURATES SCREEN NEGATIVE; URINE BENZODIAZEPINES SCREEN NEGATIVE; URINE COCAINE SCREEN NEGATIVE; URINE MARIJUANA (THC) SCREEN NEGATIVE; URINE METHADONE SCREEN NEGATIVE; URINE PHENCYCLIDINE SCREEN NEGATIVE
--- NOTE | 2019-04-01 22:00 | Non Stress Test Report ---
Non Stress Test Datetime Report Generated by CPN: 04/01/2019 22:00 DEMOGRAPHIC EGA NST: 35.4 INDICATION Indication for Study (NST) Other: labor check MONITORING Monitor Explained: Monitor Explained; Test Explained; Patient Verbalized Understanding Time on Monitor: 04/01/2019 20:45 Time off Monitor: 04/01/2019 21:49 NST Duration: 64 NST INTERVENTIONS NST Interventions: None Physician Notified NST: Dr Romero BABY A: [id number] BABY A Movement : Present Contraction Frequency : x1 FHR Baseline : 140 Accelerations : 15X15 Decelerations : None Variability : Moderate 6-25bpm NST Review: Meets Criteria for Reactive NST NST Review and Verified By : Parisa Ruiz RN NST Results: Reactive NST REPORT Report Trigger: Send Report
== END 2019-04-01 21:57 | disposition home or self-care (01) ==
LOC: LC 20:28
PROVIDERS: ATTEND Obstetrics & Gynecology
PROC: 4A1HXCZ Monitoring of Products of Conception, Cardiac Rate, External Approach (ICD-10-PCS; principal; 2019-04-01)
DX: O47.03 False labor before 37 completed weeks of gestation, third trimester (principal); Z3A.35 35 weeks gestation of pregnancy
CPT/HCPCS: 59025; 80307; 81001

== ENCOUNTER 2019-04-06 15:22 | Outpatient (CLI) | payer MEDICAID ==
--- NOTE | 2019-04-06 16:41 | Non Stress Test Report ---
Non Stress Test Datetime Report Generated by CPN: 04/06/2019 16:40 DEMOGRAPHIC EGA NST: 36.2 VITAL SIGNS Temperature - NST: 98.5 Pulse - NST: 112 RESP - NST: 18 NBPSYS NST: 122 NBPDIA NST: 67 MONITORING Monitor Explained: Monitor Explained; Test Explained; Patient Verbalized Understanding Time on Monitor: 04/06/2019 15:35 Time off Monitor: 04/06/2019 16:11 NST Duration: 36 NST INTERVENTIONS NST Interventions: PO Hydration; Reposition Patient Physician Notified NST: DR WHALEY BABY A: [id number] BABY A Movement : Present Contraction Frequency : NONE FHR Baseline : 145 Accelerations : 15X15 Decelerations : None Variability : Moderate 6-25bpm NST Review: Meets Criteria for Reactive NST NST Review and Verified By : Owen Cates RN NST Results: Reactive NST REPORT Report Trigger: Send Report
== END 2019-04-06 16:17 | disposition home or self-care (01) ==
LOC: LC 15:22
PROVIDERS: ATTEND Obstetrics & Gynecology
PROC: 4A1HXCZ Monitoring of Products of Conception, Cardiac Rate, External Approach (ICD-10-PCS; principal; 2019-04-06)
DX: Z34.83 Encounter for supervision of other normal pregnancy, third trimester (principal); Z3A.36 36 weeks gestation of pregnancy
CPT/HCPCS: 59025

== ENCOUNTER 2019-04-13 14:41 | Outpatient (CLI) | payer MEDICAID | END 2019-04-13 15:43 | disposition home or self-care (01) | LOC: LC 14:41 | PROVIDERS: ATTEND Obstetrics & Gynecology | PROC: 4A1HXCZ Monitoring of Products of Conception, Cardiac Rate, External Approach (ICD-10-PCS; principal; 2019-04-13) | DX: Z34.93 Encounter for supervision of normal pregnancy, unspecified, third trimester (principal) | CPT/HCPCS: 59025 ==

== ENCOUNTER 2019-04-16 21:37 | Outpatient (CLI) | payer MEDICAID ==
--- NOTE | 2019-04-16 21:39 | Non Stress Test Report ---
Non Stress Test Datetime Report Generated by CPN: 04/16/2019 21:39 DEMOGRAPHIC EGA NST: 37.2 VITAL SIGNS Temperature - NST: 98.7 Pulse - NST: 97 RESP - NST: 16 NBPSYS NST: 120 NBPDIA NST: 70 MONITORING Monitor Explained: Monitor Explained; Test Explained; Patient Verbalized Understanding Time on Monitor: 04/13/2019 14:59 Time off Monitor: 04/13/2019 15:40 NST Duration: 41 NST INTERVENTIONS NST Interventions: Reposition Patient Physician Notified NST: A. Harmon, CNM BABY A: [id number] BABY A Movement : Present Contraction Frequency : irregular FHR Baseline : 135 Accelerations : 15X15 Decelerations : None Variability : Moderate 6-25bpm NST Review: Meets Criteria for Reactive NST NST Review and Verified By : JAYLYN Evans Results: Reactive NST REPORT Report Trigger: Send Report
[2019-04-16 22:20] LABS: APPEARANCE,URINE CLOUDY; BILIRUBIN,URINE NEGATIVE (NEGATIVE); COLOR,URINE YELLOW; GLUCOSE, URINE >=500 mg/dL (NEGATIVE); KETONES,URINE TRACE mg/dL (NEGATIVE); LEUKOCYTE ESTERASE,URINE LARGE (NEGATIVE); NITRITE,URINE NEGATIVE (NEGATIVE); PROTEIN,URINE NEGATIVE (NEGATIVE)
[2019-04-16 22:38] LABS: URINE AMPHETAMINES SCREEN NEGATIVE; URINE BARBITURATES SCREEN NEGATIVE; URINE BENZODIAZEPINES SCREEN NEGATIVE; URINE COCAINE SCREEN NEGATIVE; URINE MARIJUANA (THC) SCREEN NEGATIVE; URINE METHADONE SCREEN NEGATIVE; URINE PHENCYCLIDINE SCREEN NEGATIVE
[2019-04-16] MEDS ORDERED: HYDROXYZINE PAMOATE 50 MG CAPSULE ONE (22:51)
--- NOTE | 2019-04-16 23:08 | Non Stress Test Report ---
Non Stress Test Datetime Report Generated by CPN: 04/16/2019 23:08 DEMOGRAPHIC EGA NST: 37.5 INDICATION Indication for Study (NST) Other: labor check MONITORING Monitor Explained: Monitor Explained; Test Explained; Patient Verbalized Understanding Time on Monitor: 04/16/2019 22:00 Time off Monitor: 04/16/2019 22:45 NST Duration: 45 NST INTERVENTIONS NST Interventions: PO Hydration Physician Notified NST: Dr. Younger BABY A Movement : Present Contraction Frequency : irregular FHR Baseline : 150 Accelerations : 15X15 Decelerations : None Variability : Moderate 6-25bpm NST Review: Meets Criteria for Reactive NST NST Review and Verified By : Rebekah Grissom RN Results: Reactive NST REPORT Report Trigger: Send Report
[2019-04-16] MEDS ORDERED: HYDROXYZINE PAMOATE 50 MG CAPSULE PO ONE (23:15)
== END 2019-04-16 23:01 | disposition home or self-care (01) ==
LOC: LC 21:37
PROVIDERS: ATTEND Obstetrics & Gynecology
PROC: 4A1HXCZ Monitoring of Products of Conception, Cardiac Rate, External Approach (ICD-10-PCS; principal; 2019-04-16)
DX: Z34.93 Encounter for supervision of normal pregnancy, unspecified, third trimester (principal)
CPT/HCPCS: 81005; 80307; 59025; J3490

== ENCOUNTER 2019-04-19 21:16 | Outpatient (CLI) | payer MEDICAID ==
[2019-04-19 22:06] LABS: APPEARANCE,URINE CLOUDY; BILIRUBIN,URINE NEGATIVE (NEGATIVE); COLOR,URINE YELLOW; GLUCOSE, URINE NEGATIVE (NEGATIVE); KETONES,URINE 20 mg/dL (NEGATIVE); LEUKOCYTE ESTERASE,URINE LARGE (NEGATIVE); NITRITE,URINE NEGATIVE (NEGATIVE); PROTEIN,URINE 30 mg/dL (NEGATIVE); URINE SPECIFIC GRAVITY 1.025
[2019-04-19 22:24] LABS: URINE AMPHETAMINES SCREEN NEGATIVE; URINE BARBITURATES SCREEN NEGATIVE; URINE BENZODIAZEPINES SCREEN NEGATIVE; URINE COCAINE SCREEN NEGATIVE; URINE MARIJUANA (THC) SCREEN NEGATIVE; URINE METHADONE SCREEN NEGATIVE; URINE PHENCYCLIDINE SCREEN NEGATIVE
--- NOTE | 2019-04-20 00:45 | Non Stress Test Report ---
Non Stress Test Datetime Report Generated by CPN: 04/20/2019 00:45 DEMOGRAPHIC EGA NST: 38.2 INDICATION Indication for Study (NST) Other: False Labor MONITORING Monitor Explained: Monitor Explained; Test Explained; Patient Verbalized Understanding Time on Monitor: 04/20/2019 00:13 Time off Monitor: 04/20/2019 00:33 NST Duration: 20 NST INTERVENTIONS NST Interventions: PO Hydration; Reposition Patient Physician Notified NST: Dr. Hazel BABY A: [id number] BABY A Movement : Present Contraction Frequency : 7-8 FHR Baseline : 145 Accelerations : 15X15 Decelerations : None Variability : Moderate 6-25bpm NST Review: Meets Criteria for Reactive NST NST Review and Verified By : Parisa Ruiz RN NST Results: Reactive NST REPORT Report Trigger: Send Report
== END 2019-04-20 00:44 | disposition home or self-care (01) ==
LOC: LC 21:16
PROVIDERS: ATTEND Obstetrics & Gynecology Gynecology
PROC: 4A1HXCZ Monitoring of Products of Conception, Cardiac Rate, External Approach (ICD-10-PCS; principal; 2019-04-19)
DX: O47.1 False labor at or after 37 completed weeks of gestation (principal); Z3A.38 38 weeks gestation of pregnancy
CPT/HCPCS: 59025; 80307; 81005

== ENCOUNTER 2019-04-21 15:54 | Outpatient (CLI) | payer MEDICAID ==
[2019-04-21 16:55] LABS: APPEARANCE,URINE SLIGHTLY-CLOUDY; BILIRUBIN,URINE NEGATIVE (NEGATIVE); COLOR,URINE YELLOW; GLUCOSE, URINE NEGATIVE (NEGATIVE); KETONES,URINE NEGATIVE (NEGATIVE); LEUKOCYTE ESTERASE,URINE SMALL (NEGATIVE); NITRITE,URINE NEGATIVE (NEGATIVE); PROTEIN,URINE NEGATIVE (NEGATIVE); URINE SPECIFIC GRAVITY 1.008
[2019-04-21 17:22] LABS: URINE AMPHETAMINES SCREEN NEGATIVE; URINE BARBITURATES SCREEN NEGATIVE; URINE BENZODIAZEPINES SCREEN NEGATIVE; URINE COCAINE SCREEN NEGATIVE; URINE MARIJUANA (THC) SCREEN NEGATIVE; URINE METHADONE SCREEN NEGATIVE; URINE PHENCYCLIDINE SCREEN NEGATIVE
== END 2019-04-21 18:00 | disposition home or self-care (01) ==
LOC: LC 15:54
PROVIDERS: ATTEND Obstetrics & Gynecology
PROC: 4A1HXCZ Monitoring of Products of Conception, Cardiac Rate, External Approach (ICD-10-PCS; principal; 2019-04-21)
DX: O47.1 False labor at or after 37 completed weeks of gestation (principal); Z3A.38 38 weeks gestation of pregnancy
CPT/HCPCS: 59025; 80307; 81005

== ENCOUNTER 2019-04-22 20:35 | Inpatient (IN) | payer MEDICAID ==
[2019-05-04] MEDS ORDERED: RINGERS SOLUTION,LACTATED 300 ML IV ONE (06:41)
[2019-05-04] MEDS ORDERED: OXYTOCIN/NORMAL SALINE 20 UNIT/1,000 ML RTUINJ IV PRN ×2 (06:41→18:11)
[2019-05-04] MEDS ORDERED: RINGERS SOLUTION,LACTATED 1,000 ML IV PRN (06:41)
[2019-05-04 07:37] LABS: ABSOLUTE BASOPHILS # (AUTO) 0.1 10^3/uL (0.0-0.2); ABSOLUTE MONOCYTES (AUTO) 0.9 10^3/uL (0.1-1.4); ABSOLUTE NEUT (AUTO) 7.6 10^3/uL (1.7-8.2); BASOPHILS % (AUTO) 0.5 % (0-2); EOSINOPHILS % (AUTO) 0.4 % (0-6); HEMATOCRIT 33.3 % (36.0-47.0); HEMOGLOBIN 11.3 g/dL (12.0-15.5); LYMPHOCYTES % (AUTO) 18.5 % (13-45); MEAN CORPUSCULAR VOLUME 77 fl (80-97); MONOCYTES % (AUTO) 8.6 % (3-13); PLATELET COUNT 312 10^3/uL (150-450); RED BLOOD COUNT 4.36 10^6/uL (3.72-5.28); RED CELL DISTRIBUTION WIDTH 14.2 % (11.5-14.0); TOTAL CELLS COUNTED % (AUTO) 100 %; WHITE BLOOD COUNT 10.6 10^3/uL (4.0-10.5)
[2019-05-04] MEDS ORDERED: OXYTOCIN 10 UNIT/ML VIAL ONE (07:57)
[2019-05-04] MEDS ORDERED: MISOPROSTOL 0.2 MG TABLET ONE (07:57)
[2019-05-04] MEDS ORDERED: LIDOCAINE 1% INJ-PF (10 MG/ML) 30 ML SDV ONE (07:57)
[2019-05-04] MEDS ORDERED: OXYTOCIN/NORMAL SALINE 20 UNIT/1,000 ML RTUINJ ONE (07:58)
[2019-05-04 08:19] LABS: APPEARANCE,URINE CLOUDY; BILIRUBIN,URINE NEGATIVE (NEGATIVE); COLOR,URINE YELLOW; GLUCOSE, URINE NEGATIVE (NEGATIVE); KETONES,URINE NEGATIVE (NEGATIVE); LEUKOCYTE ESTERASE,URINE LARGE (NEGATIVE); NITRITE,URINE NEGATIVE (NEGATIVE); PROTEIN,URINE 30 mg/dL (NEGATIVE); UROBILINOGEN,URINE NEGATIVE mg/dL (<2.0)
--- NOTE | 2019-05-04 08:29 | Admission Physical ---
Datetime Report Generated by CPN: 05/04/2019 08:28 CURRENT ADMISSION Indication for Induction: Maternal Diabetes Indication for Induction- Other: GDM-DC Admit Impression : No Active Labor; Intact Membranes; Induction of Labor Admit Plan: Initiate Labor Induction Protocol Admit Plan- Other: Routine Pitocin ALLERGIES Medication Allergies: Yes Medication Allergies: No Known Allergies (05/04/2019) Latex: No Latex Allergies Food Allergies: None Environmental Allergies: None OBSTETRICAL HISTORY EDC: 05/02/2019 00:00 : 3 Para: 1 Term: 1 IAB: 1 Ectopic: 0 Livin Cesareans: 0 Multiple Births: 0 Gestational Diabetes: Yes Rh Sensitization: No Incompetent Cervix: No AUGUSTIN: No Infertility: No ART Treatment: No Uterine Anomaly: No IUGR: No Hx Previous C/S: No Macrosomia: No Hx Loss/Stillborn: No PIH: No Hx : No Placenta Previa/Abruption: No Depression/PP Depression: No PTL/PROM: No Post Hemorrhage: No Current Procedures: Ultrasound Obstetrical History Comments: G1- 2013, IAB G2- 2015, G3- Current, GDM SEE RECORDS Alcohol: No Marijuana : No Cocaine: No Other Illicit Drugs: No Cigarettes: Former Smoker. 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 INFECTIOUS HISTORY Gonorrhea: No Genital Herpes: No Chlamydia: No Tuberculosis: No Syphilis: No Hepatitis: No HIV/AIDS Exposure: No Rash or Viral Illness: No HPV: No PHYSICAL EXAM General: Normal HEENT: Normal Neurologic: Normal Thyroid: Normal Heart: Normal Lungs: Normal Breast: Normal Back: Normal Abdomen: Normal Genitourinary Exam: Normal Extremities: Normal DTRs: Normal Pelvic Type: Adequate Vital Signs: Reviewed; Within Normal Limits VAGINAL EXAM Dilatation: 3 Effacement: 70 Station: -3 Contraction Comments: irregular MEMBRANES Membranes: Intact FETUS A Monitoring: External US FHR- Baseline: 145 Variability: Moderate 6-25bpm Accelerations: 10X10 Decelerations: None Admit Comment: at 40 wks and 2days admitted for IOL. Hx GDM-DC, A+, GBS negative. pt doing well this morning, feeling occassional contraction. VE 2-3/70/-3, vtx. EFW via leapolds 8lbs. Pitocin infusing. Pt plans an epidural when in active labor. Plan AROM w/ good contraction pattern. Dr Arboleda is the attending MD today. PLANS FOR LABOR AND DELIVERY Labor and Delivery: None Pain Management: Epidural Feeding Preference: Breast Benefit of Breast Feed Discussed: Yes Circumcision: No INFORMED CONSENT Assignment: Miriam Arboleda MD Signature: with User ID: [email or web address] : with User ID: [email or web address]
[2019-05-04 08:54] LABS: URINE AMPHETAMINES SCREEN NEGATIVE; URINE BARBITURATES SCREEN NEGATIVE; URINE BENZODIAZEPINES SCREEN NEGATIVE; URINE COCAINE SCREEN NEGATIVE; URINE MARIJUANA (THC) SCREEN NEGATIVE; URINE METHADONE SCREEN NEGATIVE; URINE PHENCYCLIDINE SCREEN NEGATIVE
[2019-05-04] MEDS ORDERED: FENTANYL CITRATE INJ/PF 100 MCG/2 ML AMPUL ONE (11:55)
[2019-05-04] MEDS ORDERED: EPHEDRINE SULFATE INJ 50 MG/1 ML AMPULE ONE (11:55)
[2019-05-04] MEDS ORDERED: PHENYLEPHRINE HCL INJ/PF 10 MG/1 ML SDV ONE (11:55)
[2019-05-04] MEDS ORDERED: FENTANYL/BUPIVACAINE/NS/PF 300 MCG/150 ML RTUINJ EPI ONE (11:56)
[2019-05-04] MEDS ORDERED: BUPIVACAINE HCL 0.25 % INJ/PF (2.5 MG/1 ML) 30 ML VIAL ONE (11:56)
[2019-05-04] MEDS ORDERED: LIDOCAINE 2%/EPINEPHRINE INJ 20 ML VIAL ONE (17:20)
[2019-05-04] MEDS ORDERED: LIDOCAINE 1.5%/EPINEPHRINE INJ 5 ML AMP ONE (17:22)
[2019-05-04] MEDS ORDERED: BENZOCAINE/MENTHOL AEROSOL SPRAY 56 ML TOP PRN (18:11)
[2019-05-04] MEDS ORDERED: GLYCERIN/WITCH HAZEL LEAF 1 EACH MED..WIPE TP PRN (18:11)
[2019-05-04] MEDS ORDERED: MEASLES,MUMPS&RUBELLA VACC/PF 0.5 ML VIAL SUBCUT PRN (18:11)
[2019-05-04] MEDS ORDERED: ACETAMINOPHEN 650 MG SUPP.RECT PR PRN (18:11)
[2019-05-04] MEDS ORDERED: NA PHOS,M-B/NA PHOS,DI-BA (ADULT) 133 ML ENEMA PR PRN (18:11)
[2019-05-04] MEDS ORDERED: PROMETHAZINE HCL INJ 25 MG/1 ML VIAL IV PRN (18:11)
[2019-05-04] MEDS ORDERED: ZOLPIDEM TARTRATE 5 MG TABLET PO PRN (18:11)
[2019-05-04] MEDS ORDERED: MAGNESIUM HYDROXIDE SUSP 30 ML UDCUP PO PRN (18:11)
[2019-05-04] MEDS ORDERED: DIPHENHYDRAMINE HCL 25 MG CAPSULE PO PRN (18:11)
[2019-05-04] MEDS ORDERED: PROMETHAZINE HCL 25 MG TABLET PO PRN (18:11)
[2019-05-04] MEDS ORDERED: PSEUDOEPHEDRINE HCL 30 MG TABLET PO PRN (18:11)
[2019-05-04] MEDS ORDERED: DIBUCAINE 1% OINTMENT 56 GM TP PRN (18:11)
[2019-05-04] MEDS ORDERED: ACETAMINOPHEN WITH CODEINE #3 TABLET PO PRN (18:11)
[2019-05-04] MEDS ORDERED: DIPH/PERTUSS(ACELL)/TETANUS VAC/PF 0.5 ML SYR (>=10YO) IM PRN (18:11)
[2019-05-04] MEDS ORDERED: PROMETHAZINE HCL 25 MG SUPP.RECT PR PRN (18:11)
--- NOTE | 2019-05-04 19:30 | Delivery Summary ---
Del Sum A-C Datetime Report Generated by CPN: 05/04/2019 19:30 DELIVERY PERSONNEL DELIVERY PERSONNEL: [id number] Delivery Doctor:: Miriam Arboleda MD Labor and Delivery Nurse:: ASAD Hairston Labor and Delivery Nurse:: Chip jarvisjeevan KoehlerFurnace Firer/STAFF AIR DEFENSE OFFICER: Nubia Green, ST MATERNAL INFORMATION Delivery Anesthesia: Epidural Medications After Delivery: Pitocin Bolus-Please Comment Meds After Delivery Comment: 300 ml after placenta Estimated Blood Loss (ml): 200 Delivery QBL: 209 Maternal Complications: None LABOR SUMMARY EDC: 05/02/2019 00:00 No. Babies in Womb: 1 LABOR INFORMATION Reason for Induction: Maternal Diabetes Onset of Labor: 05/04/2019 09:30 Complete Dilatation: 05/04/2019 17:48 Oxytocin: Induction Group B Beta Strep: negative Reason Steroids Not Administered: Not Applicable MEMBRANES Membranes Rupture Method: Artificial Rupture of Membranes: 05/04/2019 13:49 Length of Rupture (hr): 4.15 Amniotic Fluid Color: Clear Amniotic Fluid Amount: Moderate Amniotic Fluid Odor: Normal STAGES OF LABOR Stage 1 hr: 8 Stage 1 min: 18 Stage 2 hr: 0 Stage 2 min: 10 Stage 3 hr: 0 Stage 3 min: 3 Total Time in Labor hr: 8 Total Time in Labor min: 31 VAGINAL DELIVERY Episiotomy: None Laceration #1: None Laceration Extension #1: N/A Laceration Repair: No Sponge Count Correct: N/A Sharps Count Correct: N/A BABY A INFORMATION Infant Delivery Date/Time: 05/04/2019 17:58 Method of Delivery: Vaginal Born in Route : No : N/A Forceps: N/A Vacuum Extraction: N/A Shoulder Dystocia : No PRESENTATION/POSITION BABY A Presentation: Cephalic Cephalic Presentation: Vertex Breech Presentation: N/A PLACENTA INFORMATION BABY A Placenta Delivery Time : 05/04/2019 18:01 Placenta Method of Delivery: Spontaneous Placenta Status: Delivered SCORES BABY A Heart Rate 1 min: >100 bpm Resp Effort 1 min: Good Cry Reflex Irritability 1 min: Cough or Sneeze or Pulls Away Muscle Tone 1 min: Active Motion Color 1 min: Body [place], Extremities Blue Resuscitation Effort 1 min: Tactile Stimulation SCORE 1 MIN: 9 Heart Rate 5 min: >100 bpm Resp Effort 5 min: Good Cry Reflex Irritability 5 min: Cough or Sneeze or Pulls Away Muscle Tone 5 min: Active Motion Color 5 min: Body [place], Extremities Blue SCORE 5 MIN: 9 INFANT INFORMATION BABY A Gestational Age at Delivery: 40.0 Gestational Status: Full Term- 39- 40.6 Weeks Infant Outcome : Liveborn Infant Condition : Stable Infant Sex: Male WEIGHT/LENGTH BABY A Infant Birthweight (gm): 3870 Infant Weight (lb): 8 Infant Weight (oz): 9 Length (in): 20.50 Length (cm): 52.07 CORD INFORMATION BABY A Infant Suction: None ASSESSMENT BABY A Infant Complications: None Physical Findings at Delivery: Within Normal Limits Respirations: Appears Normal Skin to Skin: Yes Child Protective Investigator/ALS Called : No Care By: Addi Saunders RN Transferred To: Remains with Mother SIGNATURES Signature: with User ID: [email or web address]
--- NOTE | 2019-05-04 19:31 | Delivery Summary ---
Del Sum A-C Datetime Report Generated by CPN: 05/04/2019 19:31 DELIVERY PERSONNEL DELIVERY PERSONNEL: [id number] Delivery Doctor:: Miriam Arboleda MD Labor and Delivery Nurse:: ASAD Hairston Labor and Delivery Nurse:: Chip jarvisjeevan KoehlerLoading Unit Tool Setter/EQUITY MANAGER: Nubia Green, ST MATERNAL INFORMATION Delivery Anesthesia: Epidural Medications After Delivery: Pitocin Bolus-Please Comment Meds After Delivery Comment: 300 ml after placenta Estimated Blood Loss (ml): 200 Delivery QBL: 209 Maternal Complications: None LABOR SUMMARY EDC: 05/02/2019 00:00 No. Babies in Womb: 1 LABOR INFORMATION Reason for Induction: Maternal Diabetes Onset of Labor: 05/04/2019 09:30 Complete Dilatation: 05/04/2019 17:48 Oxytocin: Induction Group B Beta Strep: negative Reason Steroids Not Administered: Not Applicable MEMBRANES Membranes Rupture Method: Artificial Rupture of Membranes: 05/04/2019 13:49 Length of Rupture (hr): 4.15 Amniotic Fluid Color: Clear Amniotic Fluid Amount: Moderate Amniotic Fluid Odor: Normal STAGES OF LABOR Stage 1 hr: 8 Stage 1 min: 18 Stage 2 hr: 0 Stage 2 min: 10 Stage 3 hr: 0 Stage 3 min: 3 Total Time in Labor hr: 8 Total Time in Labor min: 31 VAGINAL DELIVERY Episiotomy: None Laceration #1: None Laceration Extension #1: N/A Laceration Repair: No Sponge Count Correct: N/A Sharps Count Correct: N/A BABY A INFORMATION Infant Delivery Date/Time: 05/04/2019 17:58 Method of Delivery: Vaginal Born in Route : No : N/A Forceps: N/A Vacuum Extraction: N/A Shoulder Dystocia : No PRESENTATION/POSITION BABY A Presentation: Cephalic Cephalic Presentation: Vertex Breech Presentation: N/A PLACENTA INFORMATION BABY A Placenta Delivery Time : 05/04/2019 18:01 Placenta Method of Delivery: Spontaneous Placenta Status: Delivered SCORES BABY A Heart Rate 1 min: >100 bpm Resp Effort 1 min: Good Cry Reflex Irritability 1 min: Cough or Sneeze or Pulls Away Muscle Tone 1 min: Active Motion Color 1 min: Body [place], Extremities Blue Resuscitation Effort 1 min: Tactile Stimulation SCORE 1 MIN: 9 Heart Rate 5 min: >100 bpm Resp Effort 5 min: Good Cry Reflex Irritability 5 min: Cough or Sneeze or Pulls Away Muscle Tone 5 min: Active Motion Color 5 min: Body [place], Extremities Blue SCORE 5 MIN: 9 INFANT INFORMATION BABY A Gestational Age at Delivery: 40.0 Gestational Status: Full Term- 39- 40.6 Weeks Infant Outcome : Liveborn Infant Condition : Stable Infant Sex: Male WEIGHT/LENGTH BABY A Infant Birthweight (gm): 3870 Infant Weight (lb): 8 Infant Weight (oz): 9 Length (in): 20.50 Length (cm): 52.07 CORD INFORMATION BABY A Infant Suction: None ASSESSMENT BABY A Infant Complications: None Physical Findings at Delivery: Within Normal Limits Respirations: Appears Normal Skin to Skin: Yes Database Security Administrator/ALS Called : No Care By: Addi Saunders RN Transferred To: Remains with Mother SIGNATURES Signature: with User ID: [email or web address]
[2019-05-04] MEDS ORDERED: IBUPROFEN 800 MG TABLET ONE (19:34)
[2019-05-04] MEDS: IBUPROFEN 800 MG TABLET PO SCH (22:52)
[2019-05-04] MEDS: FAMOTIDINE 20 MG TABLET PO SCH (22:53)
[2019-05-05] MEDS ORDERED: INFLUENZA QUAD (6MOS+) 2019-20 VAC 0.5 ML SYR IM ONE (03:35)
[2019-05-05] MEDS: IBUPROFEN 800 MG TABLET PO SCH ×3 (05:05→22:42)
[2019-05-05 07:50] LABS: HEMATOCRIT 27.5 % (36.0-47.0); HEMOGLOBIN 9.3 g/dL (12.0-15.5); MEAN CORPUSCULAR HEMOGLOBIN 26.1 pg (27.0-33.4); MEAN CORPUSCULAR HGB CONC 33.8 g/dL (32.0-36.0); MEAN CORPUSCULAR VOLUME 77 fl (80-97); PLATELET COUNT 240 10^3/uL (150-450); RED BLOOD COUNT 3.56 10^6/uL (3.72-5.28); RED CELL DISTRIBUTION WIDTH 14.6 % (11.5-14.0); WHITE BLOOD COUNT 12.1 10^3/uL (4.0-10.5)
[2019-05-05] MEDS: DOCUSATE SODIUM 100 MG CAPSULE PO SCH ×2 (10:54→17:50)
[2019-05-05] MEDS: PRENATAL VITAMIN W DHA CAPSULE PO SCH (10:54)
[2019-05-05] MEDS: SENNOSIDES/DOCUSATE 8.6-50 MG 1 EACH TABLET PO SCH (10:54)
[2019-05-05] MEDS: FAMOTIDINE 20 MG TABLET PO SCH ×2 (10:54→22:42)
[2019-05-05] MEDS: FERROUS SULFATE 325 MG TABLET PO SCH ×2 (10:54→17:50)
--- NOTE | 2019-05-05 12:52 | PDOC PROGRESS REPORT ---
Subjective-OB Progress Note for:: 05/05/19 Subjective: 23yo G3 now P2 s/p ppd1. Ambulating and voiding without difficulty. Reports pain is well controlled with medication, no concerns today. Physical Exam (OB) Vital Signs: Temp Pulse Resp BP Pulse Ox 97.3 F 80 17 111/57 L 100 05/05/19 07:52 05/05/19 07:52 05/04/19 21:05 05/05/19 07:52 05/05/19 07:52 Intake & Output 05/04/19 05/05/19 05/06/19 06:59 06:59 06:59 Weight 100.6 kg - General General Appearance: Appears well In distress: None - PIH/Pre-Eclampsia Headache: Absent Epigastric Pain: No Visual Changes: No - Episiotomy/Laceration Site Condition: N/A - Lochia Lochia Amount: Scant < 10 ml Lochia Color: Rubra/Red - Abdomen Description: Soft Hernia Present: No Fundal Description: Firm, Midline Fundal Height: u/u - u/2 - Respiratory Respiratory Status: No respiratory distress - Extremities Upper extremity: Normal inspection Lower extremities: Normal inspection - Neurological Cognition: Normal Orientation: AAOx4 - Psychological Associated symptoms: Normal affect, Normal mood Objective-Diagnostic Laboratory: 05/05/19 07:18 05/05/19 07:18 WBC 12.1 H RBC 3.56 L Hgb 9.3 L Hct 27.5 L MCV 77 L MCH 26.1 L MCHC 33.8 RDW 14.6 H Plt Count 240 Assessment and Plan(PN) - Assessment and Plan (1) Encounter for induction of labor Is this a current diagnosis for this admission?: Yes Plan: delivered (2) Acute blood loss anemia Is this a current diagnosis for this admission?: Yes Plan: increase dietary iron and FeSO4 BID (3) Gestational diabetes mellitus (GDM) Qualifiers: Gestational diabetes mellitus control: unspecified Trimester: unspecified trimester Qualified Code(s): O24.419 - Gestational diabetes mellitus in , unspecified control Is this a current diagnosis for this admission?: Yes Plan: fasting bs at pp visit (4) Vaginal delivery Is this a current diagnosis for this admission?: Yes Plan: routine pp care - Time Spent with Patient Time with patient: Less than 15 minutes Medications reviewed and adjusted accordingly: Yes - Disposition Anticipated Discharge: Home Within: within 24 hours
[2019-05-06] MEDS: IBUPROFEN 800 MG TABLET PO SCH (06:08)
[2019-05-06] MEDS: ACETAMINOPHEN WITH CODEINE #3 TABLET PO PRN ×2 (06:12→09:53)
[2019-05-06 07:40] VITALS: BP 101/54
[2019-05-06] MEDS: FAMOTIDINE 20 MG TABLET PO SCH (09:13)
[2019-05-06] MEDS: DOCUSATE SODIUM 100 MG CAPSULE PO SCH (09:13)
[2019-05-06] MEDS: FERROUS SULFATE 325 MG TABLET PO SCH (09:13)
[2019-05-06] MEDS: SENNOSIDES/DOCUSATE 8.6-50 MG 1 EACH TABLET PO SCH (09:13)
[2019-05-06] MEDS: PRENATAL VITAMIN W DHA CAPSULE PO SCH (09:13)
--- NOTE | 2019-05-06 09:27 | PDOC PROGRESS REPORT ---
Subjective-OB Progress Note for:: 05/06/19 Subjective: Doing well, no c/o, , eating well Physical Exam (OB) Vital Signs: Temp Pulse Resp BP Pulse Ox 98.0 F 75 16 101/54 L 100 05/06/19 07:18 05/06/19 07:18 05/06/19 07:18 05/06/19 07:18 05/06/19 07:18 - PIH/Pre-Eclampsia Headache: Absent Epigastric Pain: No Visual Changes: No - Lochia Lochia Amount: Scant < 10 ml Lochia Color: Rubra/Red - Abdomen Description: Soft Hernia Present: No Fundal Description: Firm, Midline Fundal Height: u/u - u/2 Objective-Diagnostic Laboratory: 05/05/19 07:18 Assessment and Plan(PN) - Assessment and Plan (1) Encounter for induction of labor Is this a current diagnosis for this admission?: Yes (2) Acute blood loss anemia Is this a current diagnosis for this admission?: Yes (3) Gestational diabetes mellitus (GDM) Qualifiers: Gestational diabetes mellitus control: diet-controlled Trimester: unspecified trimester Qualified Code(s): O24.410 - Gestational diabetes mellitus in , diet controlled Is this a current diagnosis for this admission?: Yes (4) Vaginal delivery Is this a current diagnosis for this admission?: Yes - Time Spent with Patient Time with patient: Less than 15 minutes Medications reviewed and adjusted accordingly: Yes - Disposition Anticipated Discharge: Home Within: within 24 hours
--- NOTE | 2019-05-06 09:32 | PDOC DISCHARGE SUMMARY ---
Impression - Admit/DC Date/PCP Admission Date/Primary Care Provider: 05/04/19 06:38 KAREN WEI MD Discharge Date: 05/06/19 - Discharge Diagnosis (1) Encounter for induction of labor Is this a current diagnosis for this admission?: Yes (2) Acute blood loss anemia Is this a current diagnosis for this admission?: Yes (3) Gestational diabetes mellitus (GDM) Is this a current diagnosis for this admission?: Yes (4) Vaginal delivery Is this a current diagnosis for this admission?: Yes - Additional Information Discharge Diet: As Tolerated, Regular Discharge Activity: Activity As Tolerated, No Lifting Over 10 Pounds, No Lifting/Push/Pulling, Pelvic Rest Referrals: KAREN WEI MD [Primary Care Provider] - (wha 4 weeks) Home Medications: Vit No.130/Iron/Folic [ Tablet] 1 each PO DAILY 03/04/19 Ferrous Sulfate [Feosol 325 mg Tablet] 325 mg PO BID tablet 05/06/19 HPI Gestational Age: 40 Reason(s) for Admission: Induction of Labor, Gestional Diabetes Procedures: NST, Ultrasound Intrapartum Procedure(s): Spontaneous Vaginal Delivery - Boy, 8-9, home with mother Hospital Course Hospital Course: routine Results Laboratory Results: WBC 12.1 10^3/uL (4.0-10.5) H 05/05/19 07:18 RBC 3.56 10^6/uL (3.72-5.28) L 05/05/19 07:18 Hgb 9.3 g/dL (12.0-15.5) L 05/05/19 07:18 Hct 27.5 % (36.0-47.0) L 05/05/19 07:18 MCV 77 fl (80-97) L 05/05/19 07:18 MCH 26.1 pg (27.0-33.4) L 05/05/19 07:18 MCHC 33.8 g/dL (32.0-36.0) 05/05/19 07:18 RDW 14.6 % (11.5-14.0) H 05/05/19 07:18 Plt Count 240 10^3/uL (150-450) 05/05/19 07:18 Lymph % (Auto) 18.5 % (13-45) 05/04/19 07:13 [place] % (Auto) 8.6 % (3-13) 05/04/19 07:13 Eos % (Auto) 0.4 % (0-6) 05/04/19 07:13 Baso % (Auto) 0.5 % (0-2) 05/04/19 07:13 Absolute Neuts (auto) 7.6 10^3/uL (1.7-8.2) 05/04/19 07:13 Absolute Lymphs (auto) 2.0 10^3/uL (0.5-4.7) 05/04/19 07:13 Absolute Monos (auto) 0.9 10^3/uL (0.1-1.4) 05/04/19 07:13 Absolute Eos (auto) 0.0 10^3/uL (0.0-0.6) 05/04/19 07:13 Absolute Basos (auto) 0.1 10^3/uL (0.0-0.2) 05/04/19 07:13 Seg Neutrophils % 72.0 % (42-78) 05/04/19 07:13 Urine Color YELLOW 05/04/19 06:55 Urine Appearance CLOUDY 05/04/19 06:55 Urine pH 5.0 (5.0-9.0) 05/04/19 06:55 Ur Specific [place] 1.020 05/04/19 06:55 Urine Protein 30 mg/dL (NEGATIVE) H 05/04/19 06:55 Urine Glucose (UA) NEGATIVE mg/dL (NEGATIVE) 05/04/19 06:55 Urine Ketones NEGATIVE mg/dL (NEGATIVE) 05/04/19 06:55 Urine Blood NEGATIVE (NEGATIVE) 05/04/19 06:55 Urine Nitrite NEGATIVE (NEGATIVE) 05/04/19 06:55 Urine Bilirubin NEGATIVE (NEGATIVE) 05/04/19 06:55 Urine Urobilinogen NEGATIVE mg/dL (<2.0) 05/04/19 06:55 Ur Leukocyte Esterase LARGE (NEGATIVE) H 05/04/19 06:55 Urine Ascorbic Acid NEGATIVE (NEGATIVE) 05/04/19 06:55 Urine Opiates Screen NEGATIVE 05/04/19 06:55 Urine Methadone Screen NEGATIVE 05/04/19 06:55 Ur Barbiturates Screen NEGATIVE 05/04/19 06:55 Ur Phencyclidine Scrn NEGATIVE 05/04/19 06:55 Ur Amphetamines Screen NEGATIVE 05/04/19 06:55 U Benzodiazepines Scrn NEGATIVE 05/04/19 06:55 Urine Cocaine Screen NEGATIVE 05/04/19 06:55 U Marijuana (THC) Screen NEGATIVE 05/04/19 06:55 RPR NONREACTIVE (NONREACTIVE) 05/04/19 07:13 Blood Type A POSITIVE 05/04/19 07:13 Antibody Screen NEGATIVE 05/04/19 07:13 Plan Health Concerns: anemia Plan of Treatment: PNV's and IRON, rev S&S to report Goals: no complicatrions Time Spent: Less than 30 Minutes
== END 2019-05-06 14:00 | disposition home or self-care (01) | DRG 806 ==
LOC: LR 05-04 06:38 → 2S 05-04 20:30
PROVIDERS: ADMIT Obstetrics & Gynecology; ATTEND Obstetrics & Gynecology
PROC: 10E0XZZ Delivery of Products of Conception, External Approach (ICD-10-PCS; principal; 2019-05-04)
PROC: 10907ZC Drainage of Amniotic Fluid, Therapeutic from Products of Conception, Via Natural or Artificial Opening (ICD-10-PCS; 2019-05-04)
PROC: 3E02340 Introduction of Influenza Vaccine into Muscle, Percutaneous Approach (ICD-10-PCS; 2019-05-06)
DX: O24.420 Gestational diabetes mellitus in childbirth, diet controlled (principal); D62 Acute posthemorrhagic anemia; Z37.0 Single live birth; O99.02 Anemia complicating childbirth; Z3A.40 40 weeks gestation of pregnancy; Z23 Encounter for immunization
CPT/HCPCS: 36415; 80307; 81005; 85025; 85027; 86592; 86850; 86900; 86901; 90686; 94760; J2370; J2590; J3010; J3490

== ENCOUNTER 2019-04-26 21:00 | Outpatient (CLI) | payer MEDICAID ==
[2019-04-26 21:22] LABS: APPEARANCE,URINE SLIGHTLY-CLOUDY; BILIRUBIN,URINE NEGATIVE (NEGATIVE); COLOR,URINE YELLOW; GLUCOSE, URINE NEGATIVE (NEGATIVE); KETONES,URINE NEGATIVE (NEGATIVE); LEUKOCYTE ESTERASE,URINE LARGE (NEGATIVE); NITRITE,URINE NEGATIVE (NEGATIVE); PROTEIN,URINE 30 mg/dL (NEGATIVE); URINE SPECIFIC GRAVITY 1.027
[2019-04-26 21:39] LABS: URINE AMPHETAMINES SCREEN NEGATIVE; URINE BARBITURATES SCREEN NEGATIVE; URINE BENZODIAZEPINES SCREEN NEGATIVE; URINE COCAINE SCREEN NEGATIVE; URINE MARIJUANA (THC) SCREEN NEGATIVE; URINE METHADONE SCREEN NEGATIVE; URINE PHENCYCLIDINE SCREEN NEGATIVE
--- NOTE | 2019-04-26 22:54 | Non Stress Test Report ---
Non Stress Test Datetime Report Generated by CPN: 04/26/2019 22:53 DEMOGRAPHIC EGA NST: 39.1 EGA NST: 38.3 INDICATION Indication for Study (NST) Other: Gestational age greater than 32 weeks Indication for Study (NST) Other: Labor Check VITAL SIGNS Temperature - NST: 97.5 Pulse - NST: 108 RESP - NST: 17 NBPSYS NST: 118 NBPDIA NST: 73 MONITORING Monitor Explained: Monitor Explained; Test Explained; Patient Verbalized Understanding Monitor Explained: Monitor Explained; Test Explained; Patient Verbalized Understanding Time on Monitor: 04/26/2019 21:12 Time on Monitor: 04/21/2019 16:12 Time off Monitor: 04/26/2019 21:37 Time off Monitor: 04/21/2019 16:42 NST Duration: 25 NST Duration: 30 NST INTERVENTIONS NST Interventions: PO Hydration NST Interventions: None Physician Notified NST: Dr. Arboleda Physician Notified NST: YUNI Kearney (Annotations: Data stored by CPN on behalf of user) BABY A: [id number] BABY A Movement : Present Movement : Present Contraction Frequency : Irregular Contraction Frequency : 2-5 FHR Baseline : 145 FHR Baseline : 150 Accelerations : 15X15 Accelerations : 15X15 Decelerations : None Decelerations : None Variability : Moderate 6-25bpm Variability : Moderate 6-25bpm NST Review: Meets Criteria for Reactive NST NST Review: Meets Criteria for Reactive NST NST Review and Verified By : Claudio Spencer RN NST Review and Verified By : JAYLYN Nguyen NST Results: Reactive NST Results: Reactive NST REPORT Report Trigger: Send Report
== END 2019-04-26 22:58 | disposition home or self-care (01) ==
LOC: LC 21:00
PROVIDERS: ATTEND Obstetrics & Gynecology
PROC: 4A1HXCZ Monitoring of Products of Conception, Cardiac Rate, External Approach (ICD-10-PCS; principal; 2019-04-26)
DX: O47.1 False labor at or after 37 completed weeks of gestation (principal); Z3A.39 39 weeks gestation of pregnancy
CPT/HCPCS: 59025; 80307; 81005

== ENCOUNTER 2019-10-03 11:42 | Emergency (ER) | payer MEDICAID ==
[2019-10-03 11:52] VITALS: BP 135/92
--- NOTE | 2019-10-03 12:04 | ER Document Report ---
HPI - HPI Time Seen by Provider: 10/03/19 11:57 Pain Level: 5 Notes: 23-year-old female patient presents emergency department after having a dental extraction done 4 days ago. She reports she had tooth #30 extracted. She states the pain has worsened since then and the clot is gone. She believes she has dry socket. She denies any fevers. - REPRODUCTIVE Reproductive: REPORTS: : Past Medical History - General Information source: Patient - Social History Smoking Status: Current Every Day Smoker Chew tobacco use (# tins/day): No Frequency of alcohol use: None Drug Abuse: None Family History: Reviewed & Not Pertinent Patient has homicidal ideation: No - Medical History Medical History: Negative Renal/ Medical History: Denies: Hx Peritoneal Dialysis Surgical Hx: Negative - Immunizations Immunizations up to date: Yes Vertical Provider Document - CONSTITUTIONAL Notes: PHYSICAL EXAMINATION: GENERAL: Well-appearing, well-nourished and in no acute distress. HEAD: Atraumatic, normocephalic. EYES: Pupils equal round extraocular movements intact, conjunctiva are normal. ENT: Nares patent, missing tooth at tooth #30, surrounding erythema, no clot in place. No trismus. NECK: Normal range of motion LUNGS: No respiratory distress Musculoskeletal: Normal range of motion NEUROLOGICAL: Normal speech, normal gait. PSYCH: Normal mood, normal affect. SKIN: Warm, Dry, normal turgor, no rashes or lesions noted. - INFECTION CONTROL TRAVEL OUTSIDE OF THE [place] IN LAST 30 DAYS: No Course - Re-evaluation Re-evalutation: Patient will be started on appropriate medications for dry socket. Encouraged follow-up with the dentist to do the extraction. - Vital Signs Vital signs: Temp Pulse Resp BP Pulse Ox 98.7 F 81 20 135/92 H 98 10/03/19 11:58 10/03/19 11:48 10/03/19 11:48 10/03/19 11:48 10/03/19 11:48 Discharge - Discharge Clinical Impression: Dry socket Condition: Stable Disposition: HOME, SELF-CARE Additional Instructions: Please take medications as prescribed. Follow-up with her dentist as scheduled. Prescriptions: Amoxicillin 1 tab PO TID #21 tab Hydrocodone/Acetaminophen [[place] 5-325 mg Tablet] 1 tab PO Q6H #10 tablet Chlorhexidine Gluconate [Periogard] 473 ml MM TID #1 bottle Referrals: KAREN WEI MD [Primary Care Provider] - Follow up as needed
== END 2019-10-03 12:05 | disposition home or self-care (01) ==
LOC: ER 11:42
DX: M27.3 Alveolitis of jaws (principal); F17.200 Nicotine dependence, unspecified, uncomplicated
CPT/HCPCS: 99282